=== PATIENT | female | born 1985 | race Caucasian/White ===

== ENCOUNTER 2017-10-01 19:19 | Emergency (ER) | payer SELFPAY ==
[~2017-10-01] VITALS: Ht 177.8 cm; Wt 137.9 kg
[2017-10-01 19:23] VITALS: BP 144/76
--- NOTE | 2017-10-01 19:40 | ED.ADGEN ---
Adult General Chief Complaint Chief Complaint "... I got this tick bite... in my Lt groin.. " HPI HPI Patient is a 32 year old female who presents with above history of a tick bite and left groin. Tick was removed in less than 24 hours. But after application of Band-Aid to sites she developed irritation due to the Band-Aid adhesive. The tick bite ITSELF appears to be noninflamed. Patient does not remember at last tetanus. Review of Systems Review of Systems Constitutional: Denies fever or chills [] Eyes: Denies change in visual acuity, redness, or eye pain [] HENT: Denies nasal congestion or sore throat [] Respiratory: Denies cough or shortness of breath [] Cardiovascular: No additional information not addressed in HPI [] GI: Denies abdominal pain, nausea, vomiting, bloody stools or diarrhea [] : Denies dysuria or hematuria [] Musculoskeletal: Denies back pain or joint pain [] Integument: Denies rash or skin lesions []complaints of tick bite left groin Neurologic: Denies headache, focal weakness or sensory changes [] Endocrine: Denies polyuria or polydipsia [] All other systems were reviewed and found to be within normal limits, except as documented in this note. Family History Family History Noncontributory Current Medications Current Medications Current Medications Medications (Trade) Dose Ordered Sig/Channing Start Time Stop Time Status Last Admin Dose Admin Tetanus/ Diphtheria Toxoids Adsorbed (Tenivac Vial) 0.5 ml ONCE ONCE 10/01/17 21:00 10/01/17 21:01 DC 10/01/17 20:38 0.5 ML See nursing for home meds Allergies Allergies Allergies Coded Allergies Type Severity Reaction Last Updated Verified diphenhydramine Allergy Unknown 10/01/17 Yes phenazopyridine Allergy Unknown 10/01/17 Yes rizatriptan Allergy Unknown 10/01/17 Yes Physical Exam Physical Exam Constitutional: in acute distress, non-toxic appearance. [] HENT: Normocephalic, atraumatic, bilateral external ears normal, oropharynx moist, no oral exudates, nose normal. [] Eyes: PERRLA, EOMI, conjunctiva normal, no discharge. [] Neck: Normal range of motion, no tenderness, supple, no stridor. [] Cardiovascular:Heart rate regular rhythm, no murmur [] Lungs & Thorax: Bilateral breath sounds clear to auscultation [] Abdomen: Bowel sounds normal, soft, no tenderness, no masses, no pulsatile masses. [] Obese. Skin: Warm, dry, no erythema, no rash. [] Left groin erythema as per history of present illness Back: No tenderness, no CVA tenderness. [] Extremities: No tenderness, no cyanosis, no clubbing, ROM intact, no edema. [] Neurologic: Alert and oriented X 3, normal motor function, normal sensory function, no focal deficits noted. [] Psychologic: Affect anxious, judgement normal, mood normal. [] Current Patient Data Vital Signs Vital Signs Date Time Temp Pulse Resp B/P (MAP) Pulse Ox O2 Delivery O2 Flow Rate FiO2 10/01/17 19:23 97.9 89 16 98 Room Air EKG EKG [] Radiology/Procedures Radiology/Procedures [] Course & Med Decision Making Course & Med Decision Making Pertinent Labs and Imaging studies reviewed. (See chart for details). Patient massage area Polysporin 4 times a day. Avoid further adhesive Band-Aids. Follow- up primary care. Return if any concerns. Patient's tetanus was updated. [] Final Impression Final Impression 1. Tick Bite Inflamed[] Dragon Disclaimer Dragon Disclaimer This electronic medical record was generated, in whole or in part, using a voice recognition dictation system. LEILANI FERGUSON MD Oct 01, 2017 19:40
[2017-10-01] MEDS ORDERED: TETANUS AND DIPHTHERIA TOX/PF 0.5 ML VIAL. VAX IM ONE (21:00)
== END 2017-10-01 20:55 | disposition home or self-care (01) ==
LOC: ER 19:19
DX: S30.861A Insect bite (nonvenomous) of abdominal wall, initial encounter (principal); L08.9 Local infection of the skin and subcutaneous tissue, unspecified; Z88.8 Allergy status to other drugs, medicaments and biological substances; W57.XXXA Bitten or stung by nonvenomous insect and other nonvenomous arthropods, initial encounter; Y93.89 Activity, other specified; Y99.8 Other external cause status; Y92.89 Other specified places as the place of occurrence of the external cause
CPT/HCPCS: 90471; 90714; 99283-25

== ENCOUNTER 2018-04-18 10:18 | Emergency (ER) | payer OTHER ==
[~2018-04-18] VITALS: Ht 180.3 cm; Wt 147.0 kg
[2018-04-18] MEDS ORDERED: IBUP800T19 PO (10:44)
[2018-04-18] MEDS ORDERED: AMOX1TAB61 PO (10:44)
[2018-04-18 10:45] VITALS: BP 148/100
[2018-04-18] MEDS: AMOXICILLIN/K CLAV 875/125MG TABLET. PO ONE (10:45)
[2018-04-18] MEDS: IBUPROFEN 400 MG TABLET. PO ONE (10:45)
[2018-04-18] MEDS ORDERED: FLUT9.9S NS (10:46)
--- NOTE | 2018-04-18 10:46 | PHYS DOC ---
Past History Past Medical History: Cancer, Hypothyroid Past Surgical History: Appendectomy, Cancer Surgery, Cholecystectomy, , Other Alcohol Use: None Drug Use: None Adult General Chief Complaint Chief Complaint: EARACHE/EAR PAIN HPI HPI Patient is a 33-year-old female who presents with complaint of right ear pain that started last night. She rates the pain as being moderate. She also complains of some neck and upper back pain that she states is ongoing. She denies any fever. She also denies any nausea or vomiting. Review of Systems Review of Systems Constitutional: Denies fever or chills [] HENT: Positive right ear pain [] Respiratory: Denies cough or shortness of breath [] Cardiovascular: No additional information not addressed in HPI [] Musculoskeletal: Complains of mild neck and upper back pain [] Current Medications Current Medications Current Medications Medications (Trade) Dose Ordered Sig/Channing Start Time Stop Time Status Last Admin Dose Admin Amoxicillin/ Clavulanate Potassium (Augmentin 875/ 125mg) 2 tab 1X ONCE 04/18/18 10:45 04/18/18 10:46 UNV Ibuprofen (Motrin) 800 mg 1X ONCE 04/18/18 10:45 04/18/18 10:46 UNV Allergies Allergies Allergies Coded Allergies Type Severity Reaction Last Updated Verified diphenhydramine Allergy Unknown 10/01/17 Yes phenazopyridine Allergy Unknown 10/01/17 Yes rizatriptan Allergy Unknown 10/01/17 Yes Physical Exam Physical Exam Constitutional: Well developed, well nourished, no acute distress, non-toxic appearance. [] HENT: Normocephalic, atraumatic. Right TM is dull and erythematous. Left TM is normal-appearing. [] Eyes: PERRLA, EOMI, conjunctiva normal, no discharge. [] Neck: Normal range of motion, no tenderness, supple, no stridor. [] Cardiovascular:Heart rate regular rhythm, no murmur [] Lungs & Thorax: Bilateral breath sounds clear to auscultation [] Current Patient Data Vital Signs Vital Signs Date Time Temp Pulse Resp B/P (MAP) Pulse Ox O2 Delivery O2 Flow Rate FiO2 04/18/18 10:18 97.5 104 18 98 Room Air EKG EKG [] Radiology/Procedures Radiology/Procedures [] Course & Med Decision Making Course & Med Decision Making Pertinent Labs and Imaging studies reviewed. (See chart for details) [] Dragon Disclaimer Dragon Disclaimer This electronic medical record was generated, in whole or in part, using a voice recognition dictation system. Departure Departure: Impression: Primary Impression: Otitis media Disposition: 01 HOME, SELF-CARE Condition: STABLE Referrals: NALDO ROCHE MD (PCP) Patient Instructions: Otitis Media, Adult Scripts Fluticasone Propionate (Flonase Allergy Relief) 9.9 Ml Mclean.susp 2 SPRAYS NS DAILY PRN for congestion, #1 BOTTLE Prov: ZIA DAVIS Jr. DO 04/18/18 Ibuprofen (IBUPROFEN) 800 Mg Tablet 1 TAB PO TID PRN for PAIN, #30 TAB Prov: ZIA DAVIS Jr. DO 04/18/18 Amoxicillin/Potassium Clav (AUGMENTIN 875-125 TABLET) 1 Each Tablet 1 TAB PO BID for infection, #20 TAB Prov: ZIA DAVIS Jr. DO 04/18/18 Problem Qualifiers Primary Impression: Otitis media Otitis media type: unspecified Laterality: right Qualified Codes: H66.91 - Otitis media, unspecified, right ear ZIA DAVIS Jr. DO Apr 18, 2018 10:46
== END 2018-04-18 10:45 | disposition home or self-care (01) ==
LOC: ER 10:18
DX: H66.91 Otitis media, unspecified, right ear (principal); M54.2 Cervicalgia; M54.6 Pain in thoracic spine; E03.9 Hypothyroidism, unspecified; Z88.8 Allergy status to other drugs, medicaments and biological substances
CPT/HCPCS: 99283

== ENCOUNTER → 2020-02-26 | Outpatient (CLI) | payer OTHER ==
[~2020-02-26] MED LIST: AMOX1TAB61 PO; FLUT9.9S NS; IBUP800T19 PO
--- NOTE | 2020-02-26 08:49 | RAD ---
EXAM: Obstetrics sonogram. HISTORY: Growth assessment. TECHNIQUE: Sonographic imaging of a gravid uterus was performed. COMPARISON: 01/08/2020. FINDINGS: The exam is limited due to maternal body habitus. There is a single intrauterine fetus in variable presentation with a normal heart rate of 143 bpm. There is normal body motion. There is a grade 2 anterior placenta without evidence of placenta previa. The cervix is long and closed, measuring 4.4 cm. The biparietal diameter is 5.59 cm, corresponding with 23 weeks and 0 days. The head circumference is 22.74 cm, corresponding with 24 weeks and 5 days. The abdominal circumference is 18.82 cm, corresponding with 23 weeks and 4 days. The femoral length is 4.23 cm, corresponding with 23 weeks and 6 days. The estimated gestational age patient combined ultrasound measurements is 23 weeks and 6 days and the estimated weight is 625 g. This corresponds with the 55th percentile for a gestational age of 22 weeks and 5 days based on LMP. The amniotic fluid index is normal at 9.2 cm. There is fluid within the bladder and stomach. The spine is unremarkable. The remainder the anatomy is not formally assessed on this exam. IMPRESSION: 1. Single intrauterine fetus in variable presentation with a normal heart rate and gestational age based on ultrasound measurements of 23 weeks and 6 days. 2. Suboptimal evaluation of the anatomy due to maternal body habitus and presentation. A formal anatomy survey was not performed. Electronically signed by: Samira Deshpande MD (02/26/2020 8:47 AM) [id number]
== END ==
LOC: US 07:38
PROVIDERS: ATTEND Obstetrics & Gynecology
DX: Z34.92 Encounter for supervision of normal pregnancy, unspecified, second trimester (principal); Z3A.23 23 weeks gestation of pregnancy
CPT/HCPCS: 76805